=== PATIENT | female | born 1950 | race Caucasian/White ===

== ENCOUNTER 2018-12-31 10:34 | Inpatient (IN) ==
--- NOTE | 2018-12-31 10:43 | Emergency Department Note ---
Disposition Clinical Impression: Acute exacerbation of chronic obstructive airways disease Pneumonia Qualifiers: Qualified Code(s): J18.9 - Disposition: Admitted As Inpatient Condition: Fair Time of Disposition: 09:53 SOB HPI - General Stated Complaint: Abdominal pain Time Seen by Provider: 12/31/18 10:40 Source: patient Mode of arrival: ambulatory Limitations: no limitations Nursing Notes Reviewed: Yes Vital Signs Reviewed: Yes - History of Present Illness 68-year-old female past medical history of COPD presenting for one week of generalized malaise. Patient self diagnosed with bronchitis had order for a azithromycin Z-Melecio called in for her in the past 5 days, patient states that this is not helping with her symptoms she has progressively gotten worse. Patient admits to headache, lightheadedness, dizziness, shortness of breath, abdominal pain nausea vomiting and dark colored diarrhea. Pt Subjective Complaint: shortness of breath Onset (ago): week(s) Context: recent illness Severity: moderate - Related Data Home Medications Medication Instructions Recorded Confirmed Albuterol Sulfate [Proair Hfa] 2 puff IH Q4H PRN 02/27/18 12/31/18 Cholecalciferol (D-3) [Vitamin D] 1,000 unit PO DAILY 02/27/18 12/31/18 Cyanocobalamin (Vitamin B-12) 1,000 mcg PO DAILY 02/27/18 12/31/18 [Vitamin B-12] Gabapentin [Neurontin] 800 mg PO TID 02/27/18 12/31/18 Melatonin [Melatin] 3 mg PO HS 02/27/18 09/17/18 Simvastatin [Zocor] 40 mg PO HS 02/27/18 12/31/18 ALPRAZolam [Xanax 0.25 MG Tablet] 0.25 mg PO TID PRN 09/17/18 12/31/18 Buspirone HCl [Buspar] 30 mg PO BID 09/17/18 12/31/18 Fluticasone Propionate Nasal 2 spr NS DAILY 09/17/18 12/31/18 [Flonase] Fluticasone/Umeclidin/Vilanter 1 puff IH DAILY 09/17/18 12/31/18 [Trelegy Ellipta 100-62.5-25] Hyoscyamine SL [Levsin Sl] 0.125 mg SL Q6H 09/17/18 12/31/18 Losartan/Hydrochlorothiazide 1 tab PO DAILY 09/17/18 12/31/18 [Losartan-Hctz 100-25 mg Tab] Rizatriptan Benzoate [Maxalt Tissue Technologist] 10 mg PO DAILY PRN 09/17/18 12/31/18 Roflumilast [Daliresp] 500 mcg PO DAILY 09/17/18 09/17/18 Ropinirole HCl [Requip] 0.5 mg PO HS 09/17/18 12/31/18 Sertraline [Zoloft] 100 mg PO DAILY 09/17/18 12/31/18 Tramadol HCl [Ultram] 50 mg PO TID PRN 09/17/18 12/31/18 Trazodone HCl 100 mg PO HS 09/17/18 09/17/18 Previous Rx's Medication Instructions Recorded Cholestyramine 4 gm PO QIDAC #120 powd.pack 09/21/18 Pantoprazole Sodium [Protonix] 40 mg PO QAM #30 tablet. 09/21/18 Amoxicillin/Clavulanate [Augmentin] 875 mg PO BIDWM #14 tablet 10/19/18 Allergies Allergy/AdvReac Type Severity Reaction Status Date / Time cefdinir Allergy Diarrhea Verified 09/19/18 08:36 cefuroxime [From Ceftin] Allergy Diarrhea Verified 09/19/18 08:36 levofloxacin [From Levaquin] Allergy Hives Verified 12/02/17 21:17 codeine AdvReac Nausea Verified 07/17/16 09:14 latex AdvReac Hives Verified 07/17/16 09:14 Review of Systems: *See History of Present Illness for more detail Constitutional: Admits to hot/cold alteration. Denies: fever, chills Cardiovascular: Denies: chest pain Respiratory: Admits dyspnea Denies: cough, hemoptysis Gastrointestinal: Admits abdominal pain/nausea/vomiting, diarrhea and dark colored diarrhea concerning for possible melena Denies: constipation, hematemesis, hematochezia Genitourinary: Denies: hematuria Musculoskeletal: Denies: back pain, neck pain Neurological: Admits to headache, weakness, lightheadedness, dizziness Denies: numbness, paresthesias, difficulty with ambulation. Endocrine: Admits fatigue All systems ED: reviewed and negative except as stated. Review of Systems: As Per HPI Past Medical History - Past Medical History Medical history: Reports: asthma, COPD, GERD, hypertension, migraine, other Surgical history: Reports: cholecystectomy, hysterectomy, sinus surgery Psychiatric history: Reports: anxiety, depression - Social History Smoking Status: Current every day smoker Smokeless Tobacco Status: No Alcohol use: Reports: none Drug use: Reports: none Physical Exam Constitutional: Mild distress, otherwise [id number], engaged to conversation, speech is fluid, answers questions appropriately Neuro: GCS 15, no overt focal neurological deficits Head: Atraumatic, normocephalic Eyes: Pupils equal, round and reactive to light, no scleral icterus, no conjunctival injection Neck: Trachea midline without deviation. Anterior neck is supple without swelling. *Chest: Symmetric chest wall rise *Heart: Cardiac rhythm and rate are regular with S1 and S2 , no S3 or S4 appreciated, no murmurs, gallops, rubs, or clicks. *Lungs: Low tidal volumes of respiration, crackles noted in the left lower lobe, wheezes bilateral upper lobes without accessory muscle use or prolonged expiratory phase. No rhonchi or stridor appreciated. Abdomen: Abdomen diffusely but mildly tender to palpation. Abdomen is otherwise flat, soft to palpation, normal bowel sounds. No abdominal bruit auscultated. Non-distended, non-rigid, no organomegaly, no ascites appreciated. No pulsatile mass, no guarding to palpation in all four quadrants, no rebound Extremities: Normal capillary refill without evidence of pedal edema, joint swelling or erythema. Pulses/motor intact in all 4 extremities. Psychiatric exam: Patient displays a normal affect and mood for the environment. No overt signs of hallucination. Integumentary: warm, dry, intact, normal color. No rash, cyanosis, diaphoresis, erythema, or pallor - General Limitations: no limitations General appearance: alert, in distress (Patient appears in mild distress) Course Course Narrative: Differential diagnosis includes but is not limited to: COPD exacerbation Bronchitis Pneumonia Myocardial ischemia Evaluations: CBC, BMP, troponin, EKG/old EKG, chest x-ray Treatments: Zofran, DuoNeb nebs, steroids for management of patient's symptoms. Vital Signs Temperature 98.5 F 12/31/18 10:42 Pulse Rate 68 12/31/18 10:42 Respiratory Rate 26 12/31/18 10:42 Blood Pressure 150/67 06/13/19 10:42 O2 Sat by Pulse Oximetry 95 12/31/18 10:42 Temperature 98.0 F 01/01/19 06:55 Pulse Rate 72 01/01/19 06:55 Respiratory Rate 16 01/01/19 06:55 Blood Pressure 119/65 01/01/19 06:55 O2 Sat by Pulse Oximetry 97 01/01/19 06:55 Oxygen Delivery Oxygen Delivery Room Air Shortness of Breath/Dyspnea - MDM Narrative Medical decision making narrative: Imaging concerning for left lower lobe infiltrate or atelectasis Patient improved with corticosteroid and DuoNeb's in ED Patient will be admitted for COPD exacerbation as well as potential GI bleed given her dark stool Hemoglobin is stable at this time - unable to perform Hemoccult prior to patient admission In-person conversation had with hospitalist regarding concern for GI bleed. Patient verbalizes understanding and agreement with this plan. Dr. Velasco accepting admission. - Lab Data Lab results reviewed: Yes I reviewed the patient's lab results. Result diagrams: 01/01/19 04:13 01/01/19 04:13 Lab Results 12/31/18 12/31/18 12/31/18 Range/Units 10:52 10:52 10:52 WBC 6.1 (4.3-11.1) K/mcL RBC 4.03 (3.82-4.97) M/mcL Hgb 11.6 (11.5-15.4) g/dL Hct 35.1 L (35.3-44.9) % MCV 87.1 (83.0-100.0) fL MCH 28.8 (28.0-33.3) pg MCHC 33.0 (31.6-35.5) g/dL RDW 12.6 (11.5-14.5) % Plt Count 393 (140-400) K/mcL MPV 8.9 L (9.4-12.4) fL Immature Gran % 0.7 (0-4) % Seg Neutrophils % 77.6 % Lymphocytes % 11.9 % Monocytes % 8.3 % Eosinophils % 0.3 % Basophils % 1.2 % Neutrophils # 4.7 (1.6-8.9) K/mcL Lymphocytes # 0.7 (0.6-4.6) K/mcL Monocytes # 0.5 (0.0-1.3) K/mcL Eosinophils # 0.0 (0.0-0.6) K/mcL Basophils # 0.1 (0.0-0.2) K/mcL APTT 33.6 (26.0-36.0) Seconds Sodium 133 L (136-145) mEq/L Potassium 2.6 L (3.5-5.1) mEq/L Chloride 95 L (98-107) mEq/L Carbon Dioxide 27 (23-29) mEq/L BUN 9 (8-23) mg/dL Creatinine 0.48 L (0.60-1.20) mg/dL Est GFR ( Amer) > 60 (> 60) Est GFR (Non-Af Amer) > 60 (> 60) BUN/Creatinine Ratio 19 (6-26) Glucose 74 (70-105) mg/dL Calculated Osmolality 273 L (280-300) Lactic Acid (0.5-2.2) mmol/L Calcium 8.7 (8.6-10.3) mg/dL Magnesium 1.5 L (1.6-2.6) mg/dL Troponin I < 0.03 (< 0.04) ng/mL 12/31/18 Range/Units 12:47 WBC (4.3-11.1) K/mcL RBC (3.82-4.97) M/mcL Hgb (11.5-15.4) g/dL Hct (35.3-44.9) % MCV (83.0-100.0) fL MCH (28.0-33.3) pg MCHC (31.6-35.5) g/dL RDW (11.5-14.5) % Plt Count (140-400) K/mcL MPV (9.4-12.4) fL Immature Gran % (0-4) % Seg Neutrophils % % Lymphocytes % % Monocytes % % Eosinophils % % Basophils % % Neutrophils # (1.6-8.9) K/mcL Lymphocytes # (0.6-4.6) K/mcL Monocytes # (0.0-1.3) K/mcL Eosinophils # (0.0-0.6) K/mcL Basophils # (0.0-0.2) K/mcL APTT (26.0-36.0) Seconds Sodium (136-145) mEq/L Potassium (3.5-5.1) mEq/L Chloride (98-107) mEq/L Carbon Dioxide (23-29) mEq/L BUN (8-23) mg/dL Creatinine (0.60-1.20) mg/dL Est GFR ( Amer) (> 60) Est GFR (Non-Af Amer) (> 60) BUN/Creatinine Ratio (6-26) Glucose (70-105) mg/dL Calculated Osmolality (280-300) Lactic Acid 1.8 (0.5-2.2) mmol/L Calcium (8.6-10.3) mg/dL Magnesium (1.6-2.6) mg/dL Troponin I (< 0.04) ng/mL - Radiology Data Radiology results reviewed: Yes I reviewed the patient's radiology results. Chest X-Ray 12/31/18 10:45 IMPRESSION: Mild left basilar atelectasis or infiltrate. D/ / Laina Brown MD / Laina Brown MD Interpreting Provider: Laina Brown MD - EKG Data EKG attestation: Yes I reviewed and interpreted this EKG. EKG results narrative: Patient EKG shows sinus rhythm with a heart of 67 bpm, SC interval of 152 ms, QRS duration of 85 ms, QT/QTc interval 452/478 ms respectively. There are no significant ST segment elevations, depressions, pathologic Q waves, abnormal T- wave inversion, nor any other signs of acute ischemic change. This EKG performed today is generally consistent with prior EKG performed on 09/16/2018. Attestation Statement - Attestation Attestation: I, Chay Jimenez DO, examined this patient [id number] and my medical decision-making was reviewed with Dr. Alok Holguin, Resident Physician. I agree with the documented findings, disposition and treatment plan as described except to the extent set forth below. I personally supervised and was present for the rose/critical portions of the procedures completed by the resident documented below. Please see my progress notes for details.
[2018-12-31] MEDS ORDERED: methylPREDNISolone 125 MG/2 ML VIAL IVP ONE (10:44)
[2018-12-31] MEDS ORDERED: Ipratropium/Albuterol Neb 3 ML IH ONE (10:44)
[2018-12-31] MEDS ORDERED: Ondansetron 4 MG/2 ML VIAL IVP STA (10:46)
[2018-12-31 11:02] LABS: Basophils # 0.1 K/mcL (0.0-0.2); Basophils % 1.2 %; Eosinophils % 0.3 %; Hematocrit 35.1 % (35.3-44.9); Hemoglobin 11.6 g/dL (11.5-15.4); Immature Granulocytes % 0.7 % (0-4); Lymphocytes # 0.7 K/mcL (0.6-4.6); Lymphocytes % 11.9 %; Mean Corpuscular Hemoglobin 28.8 pg (28.0-33.3); Mean Corpuscular Volume 87.1 fL (83.0-100.0); Mean Platelet Volume 8.9 fL (9.4-12.4); Monocytes # 0.5 K/mcL (0.0-1.3); Monocytes % 8.3 %; Neutrophils # 4.7 K/mcL (1.6-8.9); Platelet Count 393 K/mcL (140-400); Red Blood Count 4.03 M/mcL (3.82-4.97); Red Cell Distribution Width 12.6 % (11.5-14.5); Segmented Neutrophils % 77.6 %; White Blood Count 6.1 K/mcL (4.3-11.1)
[2018-12-31 11:24] LABS: BUN/Creatinine Ratio 19 (6-26); Blood Urea Nitrogen 9 mg/dL (8-23); Calcium 8.7 mg/dL (8.6-10.3); Carbon Dioxide 27 mEq/L (23-29); Chloride 95 mEq/L (98-107); Glucose 74 mg/dL (70-105); Osmolality,Calculated 273 (280-300); Potassium 2.6 mEq/L (3.5-5.1); Sodium 133 mEq/L (136-145); Troponin I < 0.03 ng/mL (< 0.04); eGFR For African Americans > 60 (> 60); eGFR For Non-African Americans > 60 (> 60)
[2018-12-31] MEDS ORDERED: Potassium Chloride Elixir 20 MEQ/15 ML UDC PO ONE (11:32)
--- NOTE | 2018-12-31 12:35 | Emergency Department Note ---
Disposition Clinical Impression: Acute exacerbation of chronic obstructive airways disease, Pneumonia Disposition: Admitted As Inpatient Condition: Fair Forms: ED Satisfaction Letter Time of Disposition: 13:04 General Adult HPI - General Chief complaint: ED Shortness of Breath/Dyspnea Stated complaint: Abdominal pain Time Seen by Provider: 12/31/18 10:40 Source: patient Limitations: no limitations - History of Present Illness Pain Scale: 8 - Related Data Home Medications Medication Instructions Recorded Confirmed Albuterol Sulfate [Proair Hfa] 2 puff IH Q4H PRN 02/27/18 09/17/18 Cholecalciferol (D-3) [Vitamin D] 1,000 unit PO DAILY 02/27/18 09/17/18 Cyanocobalamin (Vitamin B-12) 1,000 mcg PO DAILY 02/27/18 09/17/18 [Vitamin B-12] Gabapentin [Neurontin] 800 mg PO TID 02/27/18 09/17/18 Melatonin [Melatin] 3 mg PO HS 02/27/18 09/17/18 Simvastatin [Zocor] 40 mg PO HS 02/27/18 09/17/18 ALPRAZolam [Xanax 0.25 MG Tablet] 0.25 mg PO TID PRN 09/17/18 09/17/18 Buspirone HCl [Buspar] 30 mg PO BID 09/17/18 09/17/18 Fluticasone Propionate Nasal 2 spr NS DAILY 09/17/18 09/17/18 [Flonase] Fluticasone/Umeclidin/Vilanter 1 puff IH DAILY 09/17/18 09/17/18 [Trelegy Ellipta 100-62.5-25] Hyoscyamine SL [Levsin Sl] 0.125 mg SL Q6H 09/17/18 09/17/18 Losartan/Hydrochlorothiazide 1 tab PO DAILY 09/17/18 09/17/18 [Losartan-Hctz 100-25 mg Tab] Rizatriptan Benzoate [Maxalt Press Feeder [employer]roomcorn] 10 mg PO DAILY PRN 09/17/18 09/17/18 Roflumilast [Daliresp] 500 mcg PO DAILY 09/17/18 09/17/18 Ropinirole HCl [Requip] 0.5 mg PO HS 09/17/18 09/17/18 Sertraline [Zoloft] 100 mg PO DAILY 09/17/18 09/17/18 Tramadol HCl [Ultram] 50 mg PO TID PRN 09/17/18 09/17/18 Trazodone HCl 100 mg PO HS 09/17/18 09/17/18 Previous Rx's Medication Instructions Recorded Cholestyramine 4 gm PO QIDAC #120 powd.pack 09/21/18 Pantoprazole Sodium [Protonix] 40 mg PO QAM #30 tablet. 09/21/18 Amoxicillin/Clavulanate [Augmentin] 875 mg PO BIDWM #14 tablet 10/19/18 Allergies Allergy/AdvReac Type Severity Reaction Status Date / Time cefdinir Allergy Diarrhea Verified 09/19/18 08:36 cefuroxime [From Ceftin] Allergy Diarrhea Verified 09/19/18 08:36 levofloxacin [From Levaquin] Allergy Hives Verified 12/02/17 21:17 codeine AdvReac Nausea Verified 07/17/16 09:14 latex AdvReac Hives Verified 07/17/16 09:14 Past Medical History - Past Medical History Medical history: Reports: asthma, COPD, GERD, hypertension, migraine, other Surgical history: Reports: cholecystectomy, hysterectomy, sinus surgery Psychiatric history: Reports: anxiety, depression - Social History Smoking Status: Current every day smoker Smokeless Tobacco Status: No Alcohol use: Reports: none Drug use: Reports: none Physical Exam - General Limitations: no limitations General appearance: alert, in distress (Patient appears in mild distress) Course Vital Signs Temperature 98.5 F 12/31/18 10:42 Pulse Rate 68 12/31/18 10:42 Respiratory Rate 26 12/31/18 10:42 Blood Pressure 150/67 12/31/18 10:42 O2 Sat by Pulse Oximetry 95 12/31/18 10:42 Temperature 98.5 F 12/31/18 10:42 Pulse Rate 81 12/31/18 12:33 Respiratory Rate 22 12/31/18 12:33 Blood Pressure 133/67 12/31/18 12:33 O2 Sat by Pulse Oximetry 93 12/31/18 12:33 Oxygen Delivery Oxygen Delivery Room Air Medical Decision Making - Lab Data Result diagrams: 12/31/18 10:52 12/31/18 10:52 Lab Results 12/31/18 12/31/18 Range/Units 10:52 10:52 WBC 6.1 (4.3-11.1) K/mcL RBC 4.03 (3.82-4.97) M/mcL Hgb 11.6 (11.5-15.4) g/dL Hct 35.1 L (35.3-44.9) % MCV 87.1 (83.0-100.0) fL MCH 28.8 (28.0-33.3) pg MCHC 33.0 (31.6-35.5) g/dL RDW 12.6 (11.5-14.5) % Plt Count 393 (140-400) K/mcL MPV 8.9 L (9.4-12.4) fL Immature Gran % 0.7 (0-4) % Seg Neutrophils % 77.6 % Lymphocytes % 11.9 % Monocytes % 8.3 % Eosinophils % 0.3 % Basophils % 1.2 % Neutrophils # 4.7 (1.6-8.9) K/mcL Lymphocytes # 0.7 (0.6-4.6) K/mcL Monocytes # 0.5 (0.0-1.3) K/mcL Eosinophils # 0.0 (0.0-0.6) K/mcL Basophils # 0.1 (0.0-0.2) K/mcL Sodium 133 L (136-145) mEq/L Potassium 2.6 L (3.5-5.1) mEq/L Chloride 95 L (98-107) mEq/L Carbon Dioxide 27 (23-29) mEq/L BUN 9 (8-23) mg/dL Creatinine 0.48 L (0.60-1.20) mg/dL Est GFR ( Amer) > 60 (> 60) Est GFR (Non-Af Amer) > 60 (> 60) BUN/Creatinine Ratio 19 (6-26) Glucose 74 (70-105) mg/dL Calculated Osmolality 273 L (280-300) Calcium 8.7 (8.6-10.3) mg/dL Troponin I < 0.03 (< 0.04) ng/mL Attestation Statement - Attestation Attestation: I, Chay Jimenez DO, examined this patient [id number] and my medical decision-making was reviewed with Dr. Alok Holguin, Resident Physician. I agree with the documented findings, disposition and treatment plan as described except to the extent set forth below. I personally supervised and was present for the rose/critical portions of the procedures completed by the resident documented below. Please see my progress notes for details. 68-year-old female presents emergency room from home by EMS for evaluation of generalized malaise shortness of breath and not feeling better after being started on a Z-Melecio by her forensic computer examiner. Patient is currently denying chest pain fevers or chills. She has not had any nausea vomiting or diarrhea. Denies any headache or vision change. Patient is otherwise stable. Denies any travel outside the country or changes in her medication this time. Vital signs reviewed and are stable. Patient was transported by EMS in no specific distress. She did have oxygen concentrator home as well as a CPAP machine. Patient is conversational on arrival but she does have broken speech secondary to what looks like shortness of breath. Lungs are diminished with intermittent wheezing. Heart is regular. Abdomen is soft no pulsatile masses or lesions. Patient denies any specific history of blood clots or pulmonary emboli. Extremities otherwise normal with no asymmetry redness warmth or abnormality noted. Patient speaking in full sentences and was able to move all 4 extremities with purpose and showing no acute signs of ataxia. The described presentation here today is most concerning for pulmonary related issues including COPD exacerbation with possible underlying pneumonia. Dyspnea workup will be established with lactic acid CBC blood cultures chest x-ray EKG chemistry panel and troponin. Disposition pending full workup and treatment course. EKG was reviewed by myself in documented by the resident physician. Breathing treatments and steroids have been ordered. See detailed documentation of the physical exam, medical intervention, medical decision-making and disposition in the resident physician's note. No critical care provider the patient's treatment course at this time. 1215 Chest x-ray is concerning for atelectasis versus pneumonia. Patient will be started on doxycycline with accordance to her allergy list. Blood cultures and lactic acid have been ordered. Patient is otherwise clinically stable. Respirations are responding appropriately to the breathing treatment the patient's vital signs remained unremarkable. Disposition will most likely be admission for COPD exacerbation and failed outpatient management. 1245 Patient presentation was discussed and reviewed with the hospitalist Dr. russo. No other recommendations or concerns. Patient is chronically stable. Antibiotic regimen has been started. They will follow up with [facility] labs. She will be monitored here in emergency department until admission process is completed.
[2018-12-31] MEDS ORDERED: 0.9 % Sodium Chloride 500 ML IVC ONE (12:36)
[2018-12-31] MEDS ORDERED: *HR* FentaNYL (PF) 100 MCG/2 ML VIAL IVP ONE (12:36)
[2018-12-31] MEDS ORDERED: Doxycycline 100 MG in 0.9 % Sodium Chloride Mini Bag 100 ML IVPB ONE (12:37)
[2018-12-31] MEDS ORDERED: Naloxone 0.4 MG/ML INJ IVP PRN (12:52)
--- NOTE | 2018-12-31 12:52 | Internal Med History&Physical ---
Date of Encounter: 01/01/19 Time of Encounter: 12:52 Internal Medicine - H&P: HPI Chief complaint: SOB, dark stool History of present illness: Ms. Paiz is a 68 year old female with past medical history of COPD, atrial fibrillation, cardiomyopathy, CHF, coronary artery disease, diabetes, hyperlipidemia, hypertension, renal disease , duodenal ulcer presenting for one week of history of generalized malaise associated with SOB and cough. The patient was self diagnosed with bronchitis had he PCP prescribing azithromycin Z-Melecio that she took for the last 5 days with no improvement. She is also c/o lightheadedness, dizziness, abdominal pain associated with nausea and noon bloody vomiting. She had several episodes of black loose stool. She was evaluated by ER and her CXR was suggestive of COPD exacerbation, she was admitted for further evaluation and management. Past Med Surg Social Fam HX - Past Medical History Medical history: asthma, COPD, GERD, hypertension, migraine, other Additional medical history: IBS Psychiatric history: anxiety, depression - Past Surgical History Surgical History: cholecystectomy, hysterectomy, sinus surgery - Social History Smoking Status: Current every day smoker Smokeless Tobacco Status: No Alcohol use: none Drug use: none - Family History Mother Living Status: Hx Family Cardiac Disorders: Yes Hx Family Respiratory Disorders: No Hx Family Cancer: No Hx Family GI Disorders: No Hx Family Endocrine Disorder: No Hx Family Neuromuscular Disorders: No Hx Family Neurologic Disorders: No Hx Family HEENT Disorders: No Hx Family Autoimmune Disorders: No Father Living Status: Hx Family Cardiac Disorders: Yes Hx Family Respiratory Disorders: No Hx Family Cancer: No Hx Family GI Disorders: No Hx Family Endocrine Disorder: No Hx Family Neuromuscular Disorders: No Hx Family Neurologic Disorders: No Hx Family HEENT Disorders: No Hx Family Autoimmune Disorders: No Internal Medicine - H&P: Meds Albuterol Sulfate [Proair Hfa] 2 puff IH Q4H PRN 02/27/18 [History] Cholecalciferol (D-3) [Vitamin D] 1,000 unit PO DAILY 02/27/18 [History] Cyanocobalamin (Vitamin B-12) [Vitamin B-12] 1,000 mcg PO DAILY 02/27/18 [History] Gabapentin [Neurontin] 800 mg PO TID 02/27/18 [History] Melatonin [Melatin] 3 mg PO HS 02/27/18 [History] Simvastatin [Zocor] 40 mg PO HS 02/27/18 [History] ALPRAZolam [Xanax 0.25 MG Tablet] 0.25 mg PO TID PRN 09/17/18 [History] Buspirone HCl [Buspar] 30 mg PO BID 09/17/18 [History] Fluticasone Propionate Nasal [Flonase] 2 spr NS DAILY 09/17/18 [History] Fluticasone/Umeclidin/Vilanter [Trelegy Ellipta 100-62.5-25] 1 puff IH DAILY [History] Hyoscyamine SL [Levsin Sl] 0.125 mg SL Q6H 09/17/18 [History] Losartan/Hydrochlorothiazide [Losartan-Hctz 100-25 mg Tab] 1 tab PO DAILY 09/17/18 [History] Rizatriptan Benzoate [Maxalt Hereditary Cancer Program Coordinator] 10 mg PO DAILY PRN 09/17/18 [History] Roflumilast [Daliresp] 500 mcg PO DAILY 09/17/18 [History] Ropinirole HCl [Requip] 0.5 mg PO HS 09/17/18 [History] Sertraline [Zoloft] 100 mg PO DAILY 09/17/18 [History] Tramadol HCl [Ultram] 50 mg PO TID PRN 09/17/18 [History] Trazodone HCl 100 mg PO HS 09/17/18 [History] Cholestyramine 4 gm PO QIDAC #120 powd.pack 09/21/18 [Rx] Pantoprazole Sodium [Protonix] 40 mg PO QAM #30 tablet. 09/21/18 [Rx] Amoxicillin/Clavulanate [Augmentin] 875 mg PO BIDWM #14 tablet 10/19/18 [Rx] Allergy/AdvReac Type Severity Reaction Status Date / Time cefdinir Allergy Diarrhea Verified 09/19/18 08:36 cefuroxime [From Ceftin] Allergy Diarrhea Verified 09/19/18 08:36 levofloxacin [From Levaquin] Allergy Hives Verified 12/02/17 21:17 codeine AdvReac Nausea Verified 07/17/16 09:14 latex AdvReac Hives Verified 07/17/16 09:14 All Systems PM: A 10-system review of systems was performed and is negative for pertinent findings except as documented above in the HPI. - Constitutional Vitals: Temp Pulse Resp BP Pulse Ox 98.5 F 81 22 133/67 93 12/31/18 10:42 12/31/18 12:33 12/31/18 12:33 12/31/18 12:33 12/31/18 12:33 General appearance: Present: A&O X 3 Exam: ` - Head Head exam: Present: atraumatic, normocephalic - Neck Neck exam general surgery: Present: supple, trachea midline. Absent: lympha denopathy - Respiratory Respiratory exam: Present: rhonchi, wheezes. Absent: accessory muscle use, rales - Cardiovascular Cardiovascular exam: Present: RRR, +S1, +S2. Absent: diastolic murmur, gallop, rubs, systolic murmur - GI/Abdominal GI/Abdominal exam: Present: normal bowel sounds, soft, no peritoneal signs. Absent: distended, tenderness - Extremities Exam Extremities exam: Present: warm, radial pulses palpable and symmetrical. Abse nt: calf tenderness, cyanotic, pedal edema Additional comments: ecchymosis of both UE Internal Med - H&P Results - Labs CBC & Chem 7: 12/31/18 10:52 12/31/18 10:52 Labs: Short CBC 12/31/18 Range/Units 10:52 WBC 6.1 (4.3-11.1) K/mcL Hgb 11.6 (11.5-15.4) g/dL Hct 35.1 L (35.3-44.9) % Plt Count 393 (140-400) K/mcL Neutrophils # 4.7 (1.6-8.9) K/mcL BMP 12/31/18 10:52 Sodium 133 L Potassium 2.6 L Chloride 95 L Carbon Dioxide 27 BUN 9 Creatinine 0.48 L Glucose 74 Calcium 8.7 Cardiac Enzymes 12/31/18 Range/Units 10:52 Troponin I < 0.03 (< 0.04) ng/mL - Impressions ITS Impressions Chest X-Ray 12/31/18 10:45 IMPRESSION: Mild left basilar atelectasis or infiltrate. D/ / Laina Brown MD / Laina Brown MD Interpreting Provider: Laina Brown MD - Assessment and Plan (1) Acute exacerbation of chronic obstructive airways disease Current Visit: Yes Status: Acute Assessment and plan: SOB COPD exacerbation caused by URTI, allergen exposure, medication nonocomp liance CXR: Mild left basilar atelectasis or infiltrate. PLAN: - Aerosols q 4 hr and PRN SOB - Solu-medrol 40 mg IV q 6 hr - O2 to keep SpO2 higher than 92% (SpO higher than 95% if CAD) - CBCD, BMP in AM - Sputum Gram stain, C+S - Tylenol 650 mg PO q 4-6 hr PRN pain/fever - Heparin 5000 U SQ BID - Home meds - check the list and restart - ABs (2) Pneumonia Current Visit: Yes Status: Acute Assessment and plan: SOB due to Pneumonia Failed OP ABx Tx- Structural lung disease- - Blood Cx - Urine Legionella antigen - Antibiotics - CBCD, CMP in AM Qualifiers: Qualified Code(s): J18.9 - Pneumonia, unspecified organism (3) Duodenal ulcer disease Current Visit: No Status: Acute Assessment and plan: The patient underwent upper and lower endoscopy in 09/08. Duodenal ulcers (nonbleeding) and to 6-10 mm nonbleeding polyps in the sigmoid colon was noted, She had diverticulosis in the sigmoid colon as well as nonbleeding internal hemorrhoids. We will start PPIs and consult GI. (4) Diastolic heart failure with preserved ejection fraction Current Visit: No Status: Chronic Assessment and plan: We will cont home meds (5) Hypokalemia Current Visit: No Status: Acute Assessment and plan: We will replace and monitor K. (6) Anemia Current Visit: Yes Status: Acute Assessment and plan: Most likely 2/2 chronic blood loss in the sitting of H/O Duodenal ulcer. HGB is stable, no evidence of active bleeding. We will cont to monitor H&H Qualifiers: Qualified Code(s): D64.9 - Anemia, unspecified - Time Spent With Patient Total time spent is greater than 50% in coordination of care (as documented) at patient's floor/unit and/or counseling patient:
[2018-12-31 12:58] LABS: Magnesium 1.5 mg/dL (1.6-2.6)
[2018-12-31] MEDS: Ipratropium/Albuterol Neb 3 ML IH SCH ×2 (16:25→22:39)
[2018-12-31] MEDS: 0.9 % Sodium Chloride 1,000 ML IVC SCH ×2 (17:37→23:44)
[2018-12-31] MEDS: Doxycycline 100 MG in 0.9 % Sodium Chloride Mini Bag 100 ML IVPB SCH (17:38)
[2018-12-31] MEDS: Pantoprazole 40 MG VIAL IVP SCH (17:42)
[2018-12-31] MEDS: MethylPREDNISolone 40 MG/ML VIAL IVP SCH ×2 (18:22→23:43)
[2018-12-31] MEDS: rOPINIRole 0.25 MG TABLET PO SCH (23:43)
[2018-12-31] MEDS: Gabapentin 400 MG CAPSULE PO SCH (23:44)
[2018-12-31] MEDS: traMADol 50 MG TABLET PO PRN (23:44)
[2018-12-31] MEDS: ALPRAZolam 0.25 MG TABLET PO PRN (23:44)
[2019-01-01] MEDS: Ipratropium/Albuterol Neb 3 ML IH SCH ×4 (04:27→22:35)
[2019-01-01] MEDS: Acetaminophen 325 MG TABLET PO PRN ×2 (04:40→21:51)
[2019-01-01] MEDS: Doxycycline 100 MG in 0.9 % Sodium Chloride Mini Bag 100 ML IVPB SCH (04:41)
[2019-01-01] MEDS: Pantoprazole 40 MG VIAL IVP SCH ×2 (04:41→17:17)
[2019-01-01] MEDS: MethylPREDNISolone 40 MG/ML VIAL IVP SCH ×3 (04:41→17:17)
[2019-01-01 05:46] LABS: White Blood Count 4.5 K/mcL (4.3-11.1)
[2019-01-01 05:47] LABS: Hematocrit 28.9 % (35.3-44.9); Hemoglobin 9.5 g/dL (11.5-15.4); Immature Granulocytes % 0.9 % (0-4); Lymphocytes # 0.4 K/mcL (0.6-4.6); Lymphocytes % 8.1 %; Mean Corpuscular HGB Conc 32.9 g/dL (31.6-35.5); Mean Corpuscular Hemoglobin 29.1 pg (28.0-33.3); Mean Corpuscular Volume 88.4 fL (83.0-100.0); Mean Platelet Volume 9.6 fL (9.4-12.4); Monocytes # 0.1 K/mcL (0.0-1.3); Monocytes % 2.5 %; Platelet Count 353 K/mcL (140-400); Red Blood Count 3.27 M/mcL (3.82-4.97); Red Cell Distribution Width 12.7 % (11.5-14.5); Segmented Neutrophils % 88.5 %
[2019-01-01 05:55] LABS: Prothrombin Time 11.7 Seconds (9.4-12.1)
[2019-01-01 06:07] LABS: Alanine Aminotransferase 9 Units/L (7-52); Albumin 2.9 g/dL (3.5-5.7); Albumin/Globulin Ratio 1.2 (1.1-2.2); Alkaline Phosphatase 55 Units/L (34-104); Aspartate Amino Transferase 11 Units/L (13-39); BUN/Creatinine Ratio 24 (6-26); Bilirubin,Total 0.3 mg/dL (0.3-1.0); Blood Urea Nitrogen 12 mg/dL (8-23); Calcium 8.1 mg/dL (8.6-10.3); Carbon Dioxide 24 mEq/L (23-29); Chloride 104 mEq/L (98-107); Chol/HDL Ratio 2.6 (0-4.9); Cholesterol 123 mg/dL (< 200); Globulin 2.5 g/dL (2.4-3.5); Glucose 126 mg/dL (70-105); HDL Cholesterol 47 mg/dL (40-59); LDL Cholesterol,Calculated 67 mg/dL (0-99); Magnesium 1.3 mg/dL (1.6-2.6); Osmolality,Calculated 277 (280-300); Phosphorous 2.4 mg/dL (2.7-4.5); Potassium 3.1 mEq/L (3.5-5.1); Sodium 133 mEq/L (136-145); Total Protein 5.4 g/dL (6.4-8.9); Triglycerides 44 mg/dL (< 150); eGFR For African Americans > 60 (> 60); eGFR For Non-African Americans > 60 (> 60)
--- NOTE | 2019-01-01 07:13 | Electrocardiograph Report ---
[place] [employer] Test Date: 2018-12-31 Pat Name: Lenore Paiz Department: EXAM2 Room: 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
[2019-01-01] MEDS ORDERED: cefTRIAXone 2,000 MG in 0.9 % Sodium Chloride Mini Bag 100 ML IVPB SCH (09:00)
[2019-01-01] MEDS ORDERED: Azithromycin 500 MG in D5% in Water 250 ML IVPB SCH (09:00)
[2019-01-01] MEDS: BUSPIRONE HCL 10 MG TABLET PO SCH ×2 (10:09→21:51)
[2019-01-01] MEDS: Cyanocobalamin (B-12) 1,000 MCG TABLET PO SCH (10:09)
[2019-01-01] MEDS: Cholecalciferol (D-3) 1,000 UNIT TABLET PO SCH (10:10)
[2019-01-01] MEDS: Losartan/HCTZ 50-12.5 TABLET PO SCH (10:10)
[2019-01-01] MEDS: Gabapentin 400 MG CAPSULE PO SCH ×3 (10:10→21:51)
[2019-01-01] MEDS: (Fluticasone/Umeclidin/Vilanter [Trelegy Ellipta 100-) IH SCH (10:10)
--- NOTE | 2019-01-01 10:15 | Internal Med Progress Note ---
Hospitalist Progress Note - Encounter Date of Encounter: 01/01/19 Time of Encounter: 10:13 - Subjective Interval History: Pt seen and examined in the room. Reported long time hx of IBS and had poor oral intake in the past several weeks. Reported alternating loose stool and normal BM. Also reported black stool. Mild abd tenderness without N/V. - Exam Vitals: Temp Pulse Resp BP Pulse Ox 98.0 F 72 16 119/65 97 01/01/19 06:55 01/01/19 06:55 01/01/19 06:55 01/01/19 06:55 01/01/19 06:55 Exam: PHYSICAL EXAMINATION: GENERAL APPEARANCE: The patient is alert, oriented and in no acute distress. HEENT: Head is normocephalic. The sinuses are nontender. Pupils are equal and reactive. The nares are patent. Oropharynx clear without lesions. NECK: Supple without lymphadenopathy. HEART: Regular rate and rhythm. LUNGS: No crackles or wheezes are heard. ABDOMEN: Soft, nontender, nondistended with good bowel sounds heard. Inguinal area is normal. EXTREMITIES: Without cyanosis, clubbing or edema. NEUROLOGICAL: Gross nonfocal. SKIN: Warm and dry without any rash. - Assessment and Plan (1) Pneumonia Current Visit: Yes Status: Acute Assessment and Plan: SOB due to Pneumonia Failed OP ABx Tx- Structural lung disease- - Blood Cx - Urine Legionella antigen - Antibiotics (2) Duodenal ulcer disease Current Visit: No Status: Acute Assessment and Plan: The patient underwent upper and lower endoscopy in 12/06. Duodenal ulcers (nonbleeding) and to 6-10 mm nonbleeding polyps in the sigmoid colon was noted, She had diverticulosis in the sigmoid colon as well as nonbleeding internal hemorrhoids. Had an BM this morning, per staff, BM seems brown and no blood noted. Will continue monitoring black BM, and H/H. May need EGD if GI bleeding was confirmed. GI following, appreciate help. (3) Hypokalemia Current Visit: No Status: Acute Assessment and Plan: replaced and monitor K. (4) Diastolic heart failure with preserved ejection fraction Current Visit: No Status: Chronic Assessment and Plan: cont home meds (5) Acute exacerbation of chronic obstructive airways disease Current Visit: Yes Status: Acute Assessment and Plan: SOB COPD exacerbation caused by URTI, allergen exposure, medication nonocompliance CXR: Mild left basilar atelectasis or infiltrate. PLAN: - Aerosols q 4 hr and PRN SOB - Solu-medrol 40 mg IV q 6 hr - O2 to keep SpO2 higher than 92% (SpO higher than 95% if CAD) - CBCD, BMP in AM - Sputum Gram stain, C+S - Tylenol 650 mg PO q 4-6 hr PRN pain/fever - Heparin 5000 U SQ BID - Home meds - check the list and restart - ABs (6) Anemia Current Visit: Yes Status: Acute Assessment and Plan: Most likely 2/2 chronic blood loss in the sitting of H/O Duodenal ulcer. HGB is stable, no evidence of active bleeding. We will cont to monitor H&H DVT Prophylaxis: SCDs. - Time Spent with Patient Total time spent is greater than 50% in coordination of care (as documented) at patient's floor/unit and/or counseling patient: Greater than 35 minutes Plan of Care Discussed with: patient Internal Medicine: Result - Labs CBC & Chem 7: 01/01/19 04:13 01/01/19 04:13 Labs: Short CBC 12/31/18 01/01/19 Range/Units 10:52 04:13 WBC 6.1 4.5 (4.3-11.1) K/mcL Hgb 11.6 9.5 L D (11.5-15.4) g/dL Hct 35.1 L 28.9 L (35.3-44.9) % Plt Count 393 353 (140-400) K/mcL Neutrophils # 4.7 4.0 (1.6-8.9) K/mcL BMP 12/31/18 01/01/19 10:52 04:13 Sodium 133 L 133 L Potassium 2.6 L 3.1 L Chloride 95 L 104 Carbon Dioxide 27 24 BUN 9 12 Creatinine 0.48 L 0.50 L Glucose 74 126 H Calcium 8.7 8.1 L Cardiac Enzymes 12/31/18 Range/Units 10:52 Troponin I < 0.03 (< 0.04) ng/mL Liver Function 01/01/19 Range/Units 04:13 Total Bilirubin 0.3 (0.3-1.0) mg/dL AST 11 L (13-39) Units/L ALT 9 (7-52) Units/L Alkaline Phosphatase 55 (34-104) Units/L Albumin 2.9 L (3.5-5.7) g/dL - ABG Interpretation ABG results: PT/INR, D-dimer PT 11.7 Seconds (9.4-12.1) 01/01/19 04:13 - Impressions Impressions Chest X-Ray 12/31/18 10:45 IMPRESSION: Mild left basilar atelectasis or infiltrate. D/ / Laina Brown MD / Laina Brown MD Interpreting Provider: Laina Brown MD Consult Discharge Plan - Plan Referrals: Adrian Dominguez [Primary Care Provider] - 01/07/19 10:45 am ___ (1) Pneumonia Qualifiers: Pneumonia type: due to unspecified organism Laterality: bilateral Lung location: unspecified part of lung Qualified Code(s): J18.9 - Pneumonia, unspec ified organism (6) Anemia Qualifiers: Qualified Code(s): D64.9 - Anemia, unspecified
[2019-01-01] MEDS: traMADol 50 MG TABLET PO PRN ×2 (10:37→17:17)
[2019-01-01] MEDS: ALPRAZolam 0.25 MG TABLET PO PRN ×2 (10:37→17:17)
--- NOTE | 2019-01-01 12:37 | Gastroenterology Consult Note ---
<Poli Lyons Kerline - Last Filed: 01/01/19 12:35> Date of Encounter: 01/01/19 Time of Encounter: 09:00 - Assessment and plan (1) Anemia Current Visit: Yes Status: Acute Assessment and plan: Hgb 11.6 on admission and 9.5 this morning. Planned for EGD this morning, but patient was fed breakfast. Continue to monitor CBC and transfuse PRBC as needed. Recent EGD with no bleeding noted. Anemia could be due to chronic disease. No overt bleeding noted. Follow up as outpatient in GI office. Repeat CBC in one week. Qualifiers: Anemia type: unspecified type Qualified Code(s): D64.9 - Anemia, unspecified (2) Duodenal ulcer disease Current Visit: No Status: Acute Assessment and plan: Noted on EGD September 2018. Ulcers not seen on repeat EGD 12/11/2018. Recommend daily PPI. - Time Spent With Patient Total time spent is greater than 50% in coordination of care (as documented) at patient's floor/unit and/or counseling patient: GI History of Present Illness - Data of Consult Patient: known to practice within the last 3 years Consult date: 01/01/19 Requesting Physician: Dara Hatch - Consult Narrative Reason for consult: Dark stool History of present illness: Ms. Paiz is a 68 year old female with PMHx of COPD, GERD, HTN, IBS duodenal ulcer presented with one week of history of generalized malaise associated with SOB and cough. She also c/o lightheadedness, dizziness, epigastric pain associated with nausea and non-bloody vomiting. She reports several episodes of black loose stools. She states she was not taking Protonix for her GERD. Hgb 11.6 on admission and 9.5 this morning. Procedures: EGD 12/11/2018 Dr. Spencer: Small hiatal hernia, gastritis. Colonoscopy 12/11/2018 Dr. Spencer: Two hyperplastic polyps, one tubular adenoma, internal hemorrhoids. EGD 09/19/2018 Dr. Spencer: Mild Schatzki ring, 2 cm hiatal hernia, nonbleeding erosive gastropathy, duodenal erosions, multiple nonbleeding duodenal ulcers. Colonoscopy 09/19/2018 Dr. Spencer: Two 6-10 mm, diverticulosis, internal hemorrhoids. NSAIDs: None Anticoagulation: None Past Med Surg Social Fam HX - Past Medical History Medical history: asthma, COPD, GERD, hypertension, migraine, other Additional medical history: IBS Psychiatric history: anxiety, depression - Past Surgical History Surgical History: cholecystectomy, hysterectomy, sinus surgery - Social History Smoking Status: Current every day smoker Packs per day: 1 Smokeless Tobacco Status: No Alcohol use: none Drug use: none - Family History Mother Living Status: Hx Family Cardiac Disorders: Yes Hx Family Respiratory Disorders: No Hx Family Cancer: No Hx Family GI Disorders: No Hx Family Endocrine Disorder: No Hx Family Neuromuscular Disorders: No Hx Family Neurologic Disorders: No Hx Family HEENT Disorders: No Hx Family Autoimmune Disorders: No Father Living Status: Hx Family Cardiac Disorders: Yes Hx Family Respiratory Disorders: No Hx Family Cancer: No Hx Family GI Disorders: No Hx Family Endocrine Disorder: No Hx Family Neuromuscular Disorders: No Hx Family Neurologic Disorders: No Hx Family HEENT Disorders: No Hx Family Autoimmune Disorders: No - Gastrointestinal Gastrointestinal: Present: as per HPI - Constitutional Constitutional: as per HPI - EENT Eyes: as per HPI Ears: Present: as per HPI Nose, mouth and throat: Present: as per HPI - Cardiovascular Cardiovascular ROS: Present: as per HPI - Respiratory Respiratory IM: Present: as per HPI - Genitourinary Genitourinary: Absent: change in color, Urinary frequency - Neurological ROS Neurological GI: Present: as per HPI - Hematologic/Lymphatic Hematologic/Lymphatic pediatric: Present: as per HPI - Musculoskeletal Musculoskeletal ROS GI: Present: as per HPI - Integumentary Integumentary GI: Present: as per HPI - Psychiatric ROS Psychiatric GI: Present: as per HPI - Endocrine Endocrine IM: Present: as per HPI - Constitutional Vitals: Temp Pulse Resp BP Pulse Ox 97.9 F 77 18 144/71 96 01/01/19 10:56 01/01/19 10:56 01/01/19 11:00 01/01/19 10:56 01/01/19 11:00 General appearance: Present: cooperative, A&O X 3, no acute distress, answers qu estions appropriately - Head Head exam: Present: atraumatic, normocephalic - Eye Eye exam: Present: normal appearance, sclera anicteric - ENT ENT exam: Present: mucous membranes moist - Neck Neck exam general surgery: Present: normal inspection, trachea midline - Respiratory Respiratory exam: Present: CTAB. Absent: rales, rhonchi - Cardiovascular Cardiovascular exam: Present: RRR, +S1, +S2 - GI/Abdominal GI/Abdominal exam: Present: soft, tenderness (epigastric), no peritoneal signs. Absent: distended, firm, guarding - Rectal Rectal exam: Present: deferred - Extremities Exam Extremities exam: Present: warm - Neurological Exam Neurological exam: Present: no focal deficits - Psychiatric Psychiatric exam: Present: normal affect, normal mood - Skin Skin exam: Present: dry, intact, normal color, warm Results - Labs CBC & Chem 7: 01/01/19 04:13 01/01/19 04:13 Labs: Last Result 01/01/19 04:13 Calcium 8.1 L Triglycerides 44 Entire Visit 01/01/19 01/01/19 01/01/19 04:13 04:13 04:13 Hgb 9.5 L D Hct 28.9 L PT 11.7 Total Bilirubin 0.3 AST 11 L ALT 9 - ABG ABG results: PT/INR, D-dimer PT 11.7 Seconds (9.4-12.1) 01/01/19 04:13 Consult Discharge Plan - Plan Referrals: Adrian Dominguez [Primary Care Provider] - 01/07/19 10:45 am <Jesus Paulson - Last Filed: 01/01/19 14:59> Date of Encounter: 01/01/19 Time of Encounter: 15:00 - Time Spent With Patient Total time spent is greater than 50% in coordination of care (as documented) at patient's floor/unit and/or counseling patient: GI History of Present Illness - Data of Consult Requesting Physician: Dara Hatch - Consult Narrative History of present illness: Ms. Paiz is a 68 year old female - Constitutional Vitals: Temp Pulse Resp BP Pulse Ox 97.9 F 77 18 144/71 96 01/01/19 10:56 01/01/19 10:56 01/01/19 11:00 01/01/19 10:56 01/01/19 11:00 Results - Labs CBC & Chem 7: 01/01/19 04:13 01/01/19 04:13 Labs: Last Result 01/01/19 04:13 Calcium 8.1 L Triglycerides 44 Entire Visit 06/01/01/19 01/01/19 04:13 04:13 04:13 Hgb 9.5 L D Hct 28.9 L PT 11.7 Total Bilirubin 0.3 AST 11 L ALT 9 - ABG ABG results: PT/INR, D-dimer PT 11.7 Seconds (9.4-12.1) 01/01/19 04:13 - Attending Attestation I have personally performed a face to face evaluation on this patient. I have reviewed and agree with the care plan. History and Exam by me shows: Patient seen currently denies any blood in her stool or abdominal pain on examination abdomen is soft. Assessment: Patient with anemia which is multifactorial no overt GI bleeding. Does has a history of peptic ulcer disease with duodenal ulcer in the past but on repeat EGD also has resolved. Recommendation: Follow H&H if continued to drop her hemoglobin then we will do EGD otherwise no indication acute for scoping
[2019-01-01] MEDS: Piperacillin/Tazobactam 3.375 GM in 0.9 % Sodium Chloride Mini Bag 100 ML IVPB SCH (17:17)
[2019-01-01] MEDS: rOPINIRole 0.25 MG TABLET PO SCH (21:52)
[2019-01-02] MEDS: traMADol 50 MG TABLET PO PRN ×3 (00:08→16:47)
[2019-01-02] MEDS: MethylPREDNISolone 40 MG/ML VIAL IVP SCH ×2 (00:08→06:37)
[2019-01-02] MEDS: ALPRAZolam 0.25 MG TABLET PO PRN ×3 (00:09→16:47)
[2019-01-02] MEDS: Piperacillin/Tazobactam 3.375 GM in 0.9 % Sodium Chloride Mini Bag 100 ML IVPB SCH ×3 (00:09→16:48)
[2019-01-02 01:54] LABS: Hematocrit 27.3 % (35.3-44.9); Hemoglobin 9.3 g/dL (11.5-15.4); Mean Corpuscular HGB Conc 34.1 g/dL (31.6-35.5); Mean Corpuscular Hemoglobin 29.9 pg (28.0-33.3); Mean Corpuscular Volume 87.8 fL (83.0-100.0); Mean Platelet Volume 9.2 fL (9.4-12.4); Platelet Count 315 K/mcL (140-400); Red Blood Count 3.11 M/mcL (3.82-4.97); Red Cell Distribution Width 12.7 % (11.5-14.5)
[2019-01-02 01:59] LABS: White Blood Count 11.8 K/mcL (4.3-11.1)
[2019-01-02 02:16] LABS: BUN/Creatinine Ratio 36 (6-26); Blood Urea Nitrogen 21 mg/dL (8-23); Carbon Dioxide 24 mEq/L (23-29); Chloride 101 mEq/L (98-107); Glucose 131 mg/dL (70-105); Magnesium 1.5 mg/dL (1.6-2.6); Osmolality,Calculated 279 (280-300); Phosphorous 2.6 mg/dL (2.7-4.5); Potassium 4.2 mEq/L (3.5-5.1); Sodium 132 mEq/L (136-145); eGFR For African Americans > 60 (> 60); eGFR For Non-African Americans > 60 (> 60)
[2019-01-02] MEDS: Ipratropium/Albuterol Neb 3 ML IH SCH ×5 (04:40→22:38)
[2019-01-02] MEDS: Pantoprazole 40 MG VIAL IVP SCH ×2 (06:37→16:48)
[2019-01-02] MEDS: Losartan/HCTZ 50-12.5 TABLET PO SCH (08:45)
[2019-01-02] MEDS: Cholecalciferol (D-3) 1,000 UNIT TABLET PO SCH (08:45)
[2019-01-02] MEDS: Gabapentin 400 MG CAPSULE PO SCH ×3 (08:46→20:35)
[2019-01-02] MEDS: Cyanocobalamin (B-12) 1,000 MCG TABLET PO SCH (08:46)
[2019-01-02] MEDS: BUSPIRONE HCL 10 MG TABLET PO SCH ×2 (08:46→20:35)
[2019-01-02] MEDS: (Fluticasone/Umeclidin/Vilanter [Trelegy Ellipta 100-) IH SCH (09:05)
--- NOTE | 2019-01-02 09:13 | Internal Med Progress Note ---
Hospitalist Progress Note - Encounter Date of Encounter: 01/02/19 Time of Encounter: 09:11 - Subjective Interval History: Pt seen and examined in the room. She has no black BM or bloody stool overnight. No bloody emesis as well. She has occasional cough with white mucus, but denies fever, chills, or night sweats. - Exam Vitals: Temp Pulse Resp BP Pulse Ox 97.9 F 69 17 132/63 94 01/02/19 07:49 01/02/19 07:49 01/02/19 07:49 01/02/19 07:49 01/02/19 07:49 Exam: PHYSICAL EXAMINATION: GENERAL APPEARANCE: The patient is alert, oriented and in no acute distress. HEENT: Head is normocephalic. The sinuses are nontender. Pupils are equal and reactive. The nares are patent. Oropharynx clear without lesions. NECK: Supple without lymphadenopathy. HEART: Regular rate and rhythm. LUNGS: No crackles or wheezes are heard. ABDOMEN: Soft, nontender, nondistended with good bowel sounds heard. Inguinal area is normal. EXTREMITIES: Without cyanosis, clubbing or edema. NEUROLOGICAL: Gross nonfocal. SKIN: Warm and dry without any rash. - Assessment and Plan (1) Pneumonia Current Visit: Yes Status: Acute Assessment and Plan: SOB due to Pneumonia Failed OP ABx Tx- Structural lung disease- Negative Legionella or pneumocossus antigen. Pending blood cx. Continue Zosyn. DC IV steroid. (2) Duodenal ulcer disease Current Visit: No Status: Acute Assessment and Plan: The patient underwent upper and lower endoscopy in 12/06. Duodenal ulcers (nonbleeding) and to 6-10 mm nonbleeding polyps in the sigmoid colon was noted, She had diverticulosis in the sigmoid colon as well as nonbleeding internal hemorrhoids. Hgb 11.6 ->9.5 ->9.3. No active bleeding now. Continue monitoring, continue IV PPI and carafate. GI recommended monitoring and f/u as outpatient if stable. (3) Hypokalemia Current Visit: No Status: Resolved (4) Diastolic heart failure with preserved ejection fraction Current Visit: No Status: Chronic Assessment and Plan: cont home meds (5) Acute exacerbation of chronic obstructive airways disease Current Visit: Yes Status: Acute Assessment and Plan: Likely secondary to pneumonia, stable, dc IV steroid. continue other treatment including duoneb. (6) Anemia Current Visit: Yes Status: Acute Assessment and Plan: Most likely 2/2 chronic blood loss in the sitting of H/O Duodenal ulcer. HGB is stable, no evidence of active bleeding. We will cont to monitor H&H DVT Prophylaxis: SCDs. - Time Spent with Patient Total time spent is greater than 50% in coordination of care (as documented) at patient's floor/unit and/or counseling patient: Greater than 35 minutes Plan of Care Discussed with: patient Internal Medicine: Result - Labs CBC & Chem 7: 01/02/19 01:38 01/02/19 01:38 Labs: Short CBC 01/02/19 Range/Units 01:38 WBC 11.8 H D (4.3-11.1) K/mcL Hgb 9.3 L (11.5-15.4) g/dL Hct 27.3 L (35.3-44.9) % Plt Count 315 (140-400) K/mcL BMP 01/02/19 01:38 Sodium 132 L Potassium 4.2 D Chloride 101 Carbon Dioxide 24 BUN 21 Creatinine 0.58 L Glucose 131 H Calcium 8.0 L - ABG Interpretation ABG results: PT/INR, D-dimer PT 11.7 Seconds (9.4-12.1) 01/01/19 04:13 Consult Discharge Plan - Plan Referrals: Adrian Dominguez [Primary Care Provider] - 01/07/19 10:45 am (1) Pneumonia Qualifiers: Pneumonia type: due to unspecified organism Laterality: bilateral Lung location: unspecified part of lung Qualified Code(s): J18.9 - Pneumonia, unspecified organism (6) Anemia Qualifiers: Anemia type: unspecified type Qualified Code(s): D64.9 - Anemia, unspecified
[2019-01-02] MEDS: Mag Hydrox/Al Hydrox/Simeth 30 ML UDC PO PRN (12:48)
[2019-01-02] MEDS: Cholestyramine 4 GM POWD.PACK PO SCH ×2 (17:45→20:39)
[2019-01-02] MEDS: rOPINIRole 0.25 MG TABLET PO SCH (20:35)
[2019-01-03] MEDS: Piperacillin/Tazobactam 3.375 GM in 0.9 % Sodium Chloride Mini Bag 100 ML IVPB SCH ×2 (00:45→08:13)
[2019-01-03] MEDS: ALPRAZolam 0.25 MG TABLET PO PRN ×3 (00:59→18:01)
[2019-01-03] MEDS: traMADol 50 MG TABLET PO PRN ×3 (01:00→18:01)
[2019-01-03] MEDS: Ipratropium/Albuterol Neb 3 ML IH SCH ×4 (04:36→23:01)
[2019-01-03 04:46] LABS: Basophils % 0.2 %; Eosinophils # 0.1 K/mcL (0.0-0.6); Eosinophils % 0.5 %; Hematocrit 30.1 % (35.3-44.9); Hemoglobin 10.1 g/dL (11.5-15.4); Immature Granulocytes % 0.6 % (0-4); Lymphocytes # 1.7 K/mcL (0.6-4.6); Lymphocytes % 17.1 %; Mean Corpuscular HGB Conc 33.6 g/dL (31.6-35.5); Mean Corpuscular Hemoglobin 29.5 pg (28.0-33.3); Mean Platelet Volume 9.5 fL (9.4-12.4); Monocytes # 1.1 K/mcL (0.0-1.3); Monocytes % 10.8 %; Neutrophils # 7.1 K/mcL (1.6-8.9); Platelet Count 346 K/mcL (140-400); Red Blood Count 3.42 M/mcL (3.82-4.97); Red Cell Distribution Width 13.2 % (11.5-14.5); Segmented Neutrophils % 70.8 %; White Blood Count 10.1 K/mcL (4.3-11.1)
[2019-01-03] MEDS: Mag Hydrox/Al Hydrox/Simeth 30 ML UDC PO PRN ×2 (04:58→18:01)
[2019-01-03] MEDS: Pantoprazole 40 MG VIAL IVP SCH ×2 (04:58→18:01)
[2019-01-03 05:05] LABS: BUN/Creatinine Ratio 18 (6-26); Blood Urea Nitrogen 12 mg/dL (8-23); Calcium 8.1 mg/dL (8.6-10.3); Carbon Dioxide 29 mEq/L (23-29); Chloride 102 mEq/L (98-107); Glucose 83 mg/dL (70-105); Magnesium 1.7 mg/dL (1.6-2.6); Osmolality,Calculated 283 (280-300); Phosphorous 3.6 mg/dL (2.7-4.5); Potassium 4.2 mEq/L (3.5-5.1); Sodium 137 mEq/L (136-145); eGFR For African Americans > 60 (> 60); eGFR For Non-African Americans > 60 (> 60)
[2019-01-03] MEDS: Cyanocobalamin (B-12) 1,000 MCG TABLET PO SCH (08:12)
[2019-01-03] MEDS: Cholecalciferol (D-3) 1,000 UNIT TABLET PO SCH (08:12)
[2019-01-03] MEDS: Losartan/HCTZ 50-12.5 TABLET PO SCH (08:12)
[2019-01-03] MEDS: Cholestyramine 4 GM POWD.PACK PO SCH ×4 (08:12→22:08)
[2019-01-03] MEDS: (Fluticasone/Umeclidin/Vilanter [Trelegy Ellipta 100-) IH SCH (08:12)
[2019-01-03] MEDS: Gabapentin 400 MG CAPSULE PO SCH ×3 (08:12→22:05)
[2019-01-03] MEDS: BUSPIRONE HCL 10 MG TABLET PO SCH ×2 (08:12→22:08)
--- NOTE | 2019-01-03 09:23 | Internal Med Progress Note ---
Hospitalist Progress Note - Encounter Date of Encounter: 01/03/19 Time of Encounter: 09:20 - Subjective Interval History: Pt seen and examined in the room. Reported improved cough and sob. Still having lightheadedness, abd pain and nausea. No bloody stool or black BM. - Exam Vitals: Temp Pulse Resp BP Pulse Ox 98.1 F 73 16 168/81 91 01/03/19 08:00 01/03/19 08:00 01/03/19 08:00 01/03/19 08:00 01/03/19 08:00 Exam: PHYSICAL EXAMINATION: GENERAL APPEARANCE: The patient is alert, oriented and in no acute distress. HEENT: Head is normocephalic. The sinuses are nontender. Pupils are equal and reactive. The nares are patent. Oropharynx clear without lesions. NECK: Supple without lymphadenopathy. HEART: Regular rate and rhythm. LUNGS: No crackles or wheezes are heard. ABDOMEN: Soft, nontender, nondistended with good bowel sounds heard. Inguinal area is normal. EXTREMITIES: Without cyanosis, clubbing or edema. NEUROLOGICAL: Gross nonfocal. SKIN: Warm and dry without any rash. - Assessment and Plan (1) Pneumonia Current Visit: Yes Status: Acute Assessment and Plan: SOB due to Pneumonia Failed OP ABx Tx- Structural lung disease- Negative Legionella or pneumocossus antigen. blood cx no growth. dc Zosyn and change to oral augmentin. DC IV steroid. Improving, anticipate dc in am. (2) Duodenal ulcer disease Current Visit: No Status: Acute Assessment and Plan: The patient underwent upper and lower endoscopy in 12/06. Duodenal ulcers (nonbleeding) and to 6-10 mm nonbleeding polyps in the sigmoid colon was noted, She had diverticulosis in the sigmoid colon as well as nonbleeding internal hemorrhoids. Hgb 11.6 ->9.5 ->9.3. No active bleeding now. Continue monitoring, continue IV PPI and carafate. GI recommended monitoring and f/u as outpatient if stable. (3) Hypokalemia Current Visit: No Status: Resolved (4) Diastolic heart failure with preserved ejection fraction Current Visit: No Status: Chronic Assessment and Plan: cont home meds (5) Acute exacerbation of chronic obstructive airways disease Current Visit: Yes Status: Acute Assessment and Plan: Likely secondary to pneumonia, stable, dc IV steroid. continue other treatment including duoneb. (6) Anemia Current Visit: Yes Status: Acute Assessment and Plan: Most likely 2/2 chronic blood loss in the sitting of H/O Duodenal ulcer. HGB is stable, no evidence of active bleeding. H/H stable. DVT Prophylaxis: SCDs. - Time Spent with Patient Total time spent is greater than 50% in coordination of care (as documented) at patient's floor/unit and/or counseling patient: Greater than 35 minutes Plan of Care Discussed with: patient Internal Medicine: Result - Labs CBC & Chem 7: 01/03/19 04:06 01/03/19 04:06 Labs: Short CBC 01/03/19 Range/Units 04:06 WBC 10.1 (4.3-11.1) K/mcL Hgb 10.1 L (11.5-15.4) g/dL Hct 30.1 L (35.3-44.9) % Plt Count 346 (140-400) K/mcL Neutrophils # 7.1 (1.6-8.9) K/mcL BMP 01/03/19 04:06 Sodium 137 Potassium 4.2 Chloride 102 Carbon Dioxide 29 BUN 12 Creatinine 0.68 Glucose 83 Calcium 8.1 L - ABG Interpretation ABG results: PT/INR, D-dimer PT 11.7 Seconds (9.4-12.1) 01/01/19 04:13 Consult Discharge Plan - Plan Referrals: Adrian Dominguez [Primary Care Provider] - 01/07/19 10:45 am (1) Pneumonia Qualifiers: Pneumonia type: due to unspecified organism Laterality: bilateral Lung location: unspecified part of lung Qualified Code(s): J18.9 - Pneumonia, unspecified organism (6) Anemia Qualifiers: Anemia type: unspecified type Qualified Code(s): D64.9 - Anemia, unspecified
[2019-01-03] MEDS: rOPINIRole 0.25 MG TABLET PO SCH (22:05)
[2019-01-04] MEDS: traMADol 50 MG TABLET PO PRN ×3 (03:26→23:11)
[2019-01-04] MEDS: ALPRAZolam 0.25 MG TABLET PO PRN ×2 (03:26→11:27)
[2019-01-04] MEDS: Ipratropium/Albuterol Neb 3 ML IH SCH ×4 (04:55→23:00)
[2019-01-04 07:12] LABS: Basophils % 0.4 %; Eosinophils # 0.2 K/mcL (0.0-0.6); Eosinophils % 2.3 %; Hematocrit 29.5 % (35.3-44.9); Hemoglobin 9.8 g/dL (11.5-15.4); Immature Granulocytes % 0.4 % (0-4); Lymphocytes # 1.2 K/mcL (0.6-4.6); Lymphocytes % 15.5 %; Mean Corpuscular HGB Conc 33.2 g/dL (31.6-35.5); Mean Corpuscular Hemoglobin 29.8 pg (28.0-33.3); Mean Corpuscular Volume 89.7 fL (83.0-100.0); Mean Platelet Volume 9.6 fL (9.4-12.4); Monocytes % 12.3 %; Neutrophils # 5.4 K/mcL (1.6-8.9); Platelet Count 340 K/mcL (140-400); Red Blood Count 3.29 M/mcL (3.82-4.97); Segmented Neutrophils % 69.1 %; White Blood Count 7.7 K/mcL (4.3-11.1)
[2019-01-04 07:36] LABS: BUN/Creatinine Ratio 19 (6-26); Blood Urea Nitrogen 8 mg/dL (8-23); Calcium 8.3 mg/dL (8.6-10.3); Carbon Dioxide 29 mEq/L (23-29); Chloride 99 mEq/L (98-107); Glucose 84 mg/dL (70-105); Magnesium 1.6 mg/dL (1.6-2.6); Osmolality,Calculated 280 (280-300); Phosphorous 3.3 mg/dL (2.7-4.5); Potassium 3.8 mEq/L (3.5-5.1); Sodium 136 mEq/L (136-145); eGFR For African Americans > 60 (> 60); eGFR For Non-African Americans > 60 (> 60)
--- NOTE | 2019-01-04 08:11 | Discharge Summary ---
- NOTES TO OUTPATIENT PROVIDER Notes to Outpatient Provider: f/u with PCP within a week. f/u with GI within a week. Orders not resulted at time of discharge: Pending orders 12/31/18 12:42 Culture,Blood [BC] Stat 12/31/18 13:12 Occult Blood,Stool [BF] Stat 12/31/18 15:38 Culture,Sputum with Gram Stain [RM] Routine Date of Encounter: 01/04/19 Time of Encounter: 08:09 - Discharge Diagnosis (1) Pneumonia Priority: Primary Status: Acute Assessment and Plan: SOB due to Pneumonia Failed OP ABx Tx- Structural lung disease- Negative Legionella or pneumocossus antigen. blood cx no growth. dc Zosyn and change to oral augmentin. DC IV steroid. Improving, anticipate dc in am. Qualifiers: Pneumonia type: due to unspecified organism Laterality: bilateral Lung location: unspecified part of lung Qualified Code(s): J18.9 - Pneumonia, uns pecified organism (2) Duodenal ulcer disease Priority: Secondary Status: Acute Assessment and Plan: The patient underwent upper and lower endoscopy in 12/06. Duodenal ulcers (nonbleeding) and to 6-10 mm nonbleeding polyps in the sigmoid colon was noted, She had diverticulosis in the sigmoid colon as well as nonbleeding internal hemorrhoids. Hgb 11.6 ->9.5 ->9.3 ->10.1 -> 9.8. No active bleeding now. Continue monitoring, continue IV PPI and carafate. GI recommended monitoring and f/u as outpatient if stable. (3) Hypokalemia Priority: Primary Status: Resolved (4) Diastolic heart failure with preserved ejection fraction Priority: Secondary Status: Chronic (5) Acute exacerbation of chronic obstructive airways disease Priority: Primary Status: Acute (6) Anemia Priority: Primary Status: Acute Assessment and Plan: Most likely 2/2 chronic blood loss in the sitting of H/O Duodenal ulcer. HGB is stable, no evidence of active bleeding. H/H stable. Qualifiers: Anemia type: unspecified type Qualified Code(s): D64.9 - Anemia, unspecified Hospital course: Ms. Paiz is a 68 year old female with past medical history of COPD, atrial fibrillation, cardiomyopathy, CHF, coronary artery disease, diabetes, hyperlipidemia, hypertension, renal disease , duodenal ulcer presenting for one week of history of generalized malaise associated with SOB and cough. The patient was self diagnosed with bronchitis and had he PCP prescribing azithromycin Z-Melecio that she took for the last 5 days with no improvement. She is also c/o lightheadedness, dizziness, abdominal pain associated with nausea and nonbloody vomiting. She had several episodes of black loose stool. She was evaluated by ER and her CXR was suggestive of COPD exacerbation and possible pneumonia, she was admitted for further evaluation and management. Labs showed multiple electrolytes imbalance including hyponatremia, hypocalcemia, hypokalemia, hypomagnesemia, and hypophosphatemia. IV antibiotics were started with Zosyn, bronchodilators was also prescribed, electrolytes were replaced. Initially, hemoglobin dropped, but has been steady at 10.0 in the past 3 days. Patient does not have signs and symptoms of active GI bleeding. GI was consulted, given the history of duodenal ulcer, recommended continue PPI and follow-up as outpatient. After 4 days of treatment, electrolytes imbalance has corrected. Patient respiratory status has improved and back to baseline, IV antibiotics has been switched to oral. Patient is discharged home today, she was instructed to continue follow-up with PCP and GI as scheduled, continue to take oral antibiotics as prescribed. Discharge discussed with: patient Time spent discussing smoking cessation with patient: more than 10 minutes - Time Spent with Patient Total time spent providing and/or coordinating discharge services: Time spent: Greater than 30 minutes - Discharge Medications Prescriptions: New Amoxicillin/Clavulanate [Augmentin] 875 mg PO BIDWM #14 tablet Mag Hydrox/Al Hydrox/Simeth [Maalox] 15 ml PO Q6HR PRN #20 udc PRN Reason: Constipation Continued Simvastatin [Zocor] 40 mg PO HS Cyanocobalamin (Vitamin B-12) [Vitamin B-12] 1,000 mcg PO DAILY Cholecalciferol (D-3) [Vitamin D] 1,000 unit PO DAILY Albuterol Sulfate [Proair Hfa] 2 puff IH Q4H PRN PRN Reason: Shortness Of Breath Gabapentin [Neurontin] 800 mg PO TID Buspirone HCl [Buspar] 30 mg PO BID Fluticasone Propionate Nasal [Flonase] 2 spr NS DAILY Fluticasone/Umeclidin/Vilanter [Trelegy Ellipta 100-62.5-25] 1 puff IH DAILY Losartan/Hydrochlorothiazide [Losartan-Hctz 100-25 mg Tab] 1 tab PO DAILY Rizatriptan Benzoate [Maxalt Compliance Analyst] 10 mg PO DAILY PRN PRN Reason: Migraine Headache Ropinirole HCl [Requip] 0.5 mg PO HS Sertraline [Zoloft] 100 mg PO DAILY Tramadol HCl [Ultram] 50 mg PO TID PRN PRN Reason: Pain Cholestyramine 4 gm PO QIDAC #120 powd.pack Pantoprazole Sodium [Protonix] 40 mg PO QAM #30 tablet. Dicyclomine Hcl [Bentyl] 20 mg PO QID Potassium Chloride [K-Tab ER] 10 meq PO DAILY ALPRAZolam [Xanax 0.5 MG Tablet] 0.25 mg PO TID PRN PRN Reason: Anxiety Clopidogrel Bisulfate [Plavix] 75 mg PO DAILY hydrOXYzine HCl [Hydroxyzine HCl] 25 mg PO TID Home Medications: Albuterol Sulfate [Proair Hfa] 2 puff IH Q4H PRN 02/27/18 [History] Cholecalciferol (D-3) [Vitamin D] 1,000 unit PO DAILY 02/27/18 [History] Cyanocobalamin (Vitamin B-12) [Vitamin B-12] 1,000 mcg PO DAILY 02/27/18 [History] Gabapentin [Neurontin] 800 mg PO TID 02/27/18 [History] Simvastatin [Zocor] 40 mg PO HS 02/27/18 [History] Buspirone HCl [Buspar] 30 mg PO BID 09/17/18 [History] Fluticasone Propionate Nasal [Flonase] 2 spr NS DAILY 09/17/18 [History] Fluticasone/Umeclidin/Vilanter [Trelegy Ellipta 100-62.5-25] 1 puff IH DAILY 09/17/18 [History] Losartan/Hydrochlorothiazide [Losartan-Hctz 100-25 mg Tab] 1 tab PO DAILY 09/17/18 [History] Rizatriptan Benzoate [Maxalt Compliance Analyst] 10 mg PO DAILY PRN 09/17/18 [History] Ropinirole HCl [Requip] 0.5 mg PO HS 09/17/18 [History] Sertraline [Zoloft] 100 mg PO DAILY 09/17/18 [History] Tramadol HCl [Ultram] 50 mg PO TID PRN 09/17/18 [History] Cholestyramine 4 gm PO QIDAC #120 powd.pack 09/21/18 [Rx] Pantoprazole Sodium [Protonix] 40 mg PO QAM #30 tablet. 09/21/18 [Rx] ALPRAZolam [Xanax 0.5 MG Tablet] 0.25 mg PO TID PRN 01/01/19 [History] Clopidogrel Bisulfate [Plavix] 75 mg PO DAILY 01/01/19 [History] Dicyclomine Hcl [Bentyl] 20 mg PO QID 01/01/19 [History] Potassium Chloride [K-Tab ER] 10 meq PO DAILY 01/01/19 [History] hydrOXYzine HCl [Hydroxyzine HCl] 25 mg PO TID 01/01/19 [History] Amoxicillin/Clavulanate [Augmentin] 875 mg PO BIDWM #14 tablet 01/04/19 [Rx] Mag Hydrox/Al Hydrox/Simeth [Maalox] 15 ml PO Q6HR PRN #20 udc 01/04/19 [Rx] Allergies/Adverse Reactions: Allergy/AdvReac Type Severity Reaction Status Date / Time cefdinir Allergy Diarrhea Verified 01/01/19 15:59 cefuroxime [From Ceftin] Allergy Diarrhea Verified 01/01/19 15:59 levofloxacin [From Levaquin] Allergy Hives Verified 01/01/19 15:59 codeine AdvReac Nausea Verified 01/01/19 15:59 latex AdvReac Hives Verified 01/01/19 15:59 Date of admission: 01/01/19 17:18 Primary care physician: Adrian Dominguez Consults: 12/31/18 15:25 Consult to Gastroenterology [CONS] Routine Consulting Provider: Gastroenterology Darline Reason for Consult: DARK STOOL. H/O DUODENAL ULCER Time Notified: 15:29 Call Completed: Yes 12/31/18 15:38 Consult to Nurse Navigator [CONS] Routine Comment: COPD, PNEUMONIA 01/01/19 11:54 Consult to Wound Care [CONS] Routine Reason for Consult: right upper arm wound, patient sees wound care outpatient Call Completed: No Anticipated date of discharge: 01/04/19 - Constitutional Vitals: Temp Pulse Resp BP Pulse Ox 97.4 F L 69 16 121/67 96 01/04/19 07:28 01/04/19 07:28 01/04/19 07:28 01/04/19 07:28 01/04/19 07:28 General appearance: Present: A&O X 3 Exam: PHYSICAL EXAMINATION: GENERAL APPEARANCE: The patient is alert, oriented and in no acute distress. HEENT: Head is normocephalic. The sinuses are nontender. Pupils are equal and reactive. The nares are patent. Oropharynx clear without lesions. NECK: Supple without lymphadenopathy. HEART: Regular rate and rhythm. LUNGS: No crackles or wheezes are heard. ABDOMEN: Soft, nontender, nondistended with good bowel sounds heard. Inguinal area is normal. EXTREMITIES: Without cyanosis, clubbing or edema. NEUROLOGICAL: Gross nonfocal. SKIN: Warm and dry without any rash. - Patient Status Disposition: Home, Self-Care Condition: Fair Functional capacity at discharge: independent ambulation Overall status at discharge: patient is progressing back to baseline - Discharge Instructions Follow Up With: Adrian Dominguez [Primary Care Provider] - 01/07/19 10:45 am - Diet and Activity Activity: increase activity as tolerated Diet: low fat, low cholesterol, low salt diet
[2019-01-04] MEDS: Cyanocobalamin (B-12) 1,000 MCG TABLET PO SCH (08:13)
[2019-01-04] MEDS: Cholestyramine 4 GM POWD.PACK PO SCH ×4 (08:13→22:15)
[2019-01-04] MEDS: BUSPIRONE HCL 10 MG TABLET PO SCH ×2 (08:14→22:13)
[2019-01-04] MEDS: Losartan/HCTZ 50-12.5 TABLET PO SCH (08:14)
[2019-01-04] MEDS: Gabapentin 400 MG CAPSULE PO SCH ×3 (08:14→22:14)
[2019-01-04] MEDS: Cholecalciferol (D-3) 1,000 UNIT TABLET PO SCH (08:14)
[2019-01-04] MEDS: (Fluticasone/Umeclidin/Vilanter [Trelegy Ellipta 100-) IH SCH (08:15)
--- NOTE | 2019-01-04 13:09 | Internal Med Progress Note ---
Hospitalist Progress Note - Encounter Date of Encounter: 01/04/19 Time of Encounter: 13:07 - Subjective Interval History: Pt seen and examined in the room. She stated that she does not feel good and feel weak. She does not think she is ready to go home. - Exam Vitals: Temp Pulse Resp BP Pulse Ox 97.4 F L 69 16 121/67 96 01/04/19 07:28 01/04/19 07:28 01/04/19 11:00 01/04/19 07:28 01/04/19 11:03 Exam: PHYSICAL EXAMINATION: GENERAL APPEARANCE: The patient is alert, oriented and in no acute distress. HEENT: Head is normocephalic. The sinuses are nontender. Pupils are equal and reactive. The nares are patent. Oropharynx clear without lesions. NECK: Supple without lymphadenopathy. HEART: Regular rate and rhythm. LUNGS: No crackles or wheezes are heard. ABDOMEN: Soft, nontender, nondistended with good bowel sounds heard. Inguinal area is normal. EXTREMITIES: Without cyanosis, clubbing or edema. NEUROLOGICAL: Gross nonfocal. SKIN: Warm and dry without any rash. - Assessment and Plan (1) Pneumonia Current Visit: Yes Status: Acute Assessment and Plan: SOB due to Pneumonia Failed OP ABx Tx- Structural lung disease- Negative Legionella or pneumocossus antigen. blood cx no growth. dc Zosyn and change to oral augmentin. DC IV steroid. Improving, anticipate dc in am. (2) Duodenal ulcer disease Current Visit: No Status: Acute Assessment and Plan: The patient underwent upper and lower endoscopy in 12/06. Duodenal ulcers (nonbleeding) and to 6-10 mm nonbleeding polyps in the sigmoid colon was noted, She had diverticulosis in the sigmoid colon as well as nonbleeding internal hemorrhoids. Hgb 11.6 ->9.5 ->9.3 ->10.1 -> 9.8. No active bleeding now. Continue monitoring, continue IV PPI and carafate. GI recommended monitoring and f/u as outpatient if stable. (3) Hypokalemia Current Visit: No Status: Resolved (4) Diastolic heart failure with preserved ejection fraction Current Visit: No Status: Chronic Assessment and Plan: cont home meds (5) Acute exacerbation of chronic obstructive airways disease Current Visit: Yes Status: Acute Assessment and Plan: Likely secondary to pneumonia, stable, dc IV steroid. continue other treatment including duoneb. (6) Anemia Current Visit: Yes Status: Acute Assessment and Plan: Most likely 2/2 chronic blood loss in the sitting of H/O Duodenal ulcer. HGB is stable, no evidence of active bleeding. H/H stable. DVT Prophylaxis: SCDs. - Time Spent with Patient Total time spent is greater than 50% in coordination of care (as documented) at patient's floor/unit and/or counseling patient: Greater than 35 minutes Plan of Care Discussed with: patient Internal Medicine: Result - Labs CBC & Chem 7: 01/04/19 05:50 01/04/19 05:50 Labs: Short CBC 01/04/19 Range/Units 05:50 WBC 7.7 (4.3-11.1) K/mcL Hgb 9.8 L (11.5-15.4) g/dL Hct 29.5 L (35.3-44.9) % Plt Count 340 (140-400) K/mcL Neutrophils # 5.4 (1.6-8.9) K/mcL BMP 01/04/19 05:50 Sodium 136 Potassium 3.8 Chloride 99 Carbon Dioxide 29 BUN 8 Creatinine 0.42 L Glucose 84 Calcium 8.3 L - ABG Interpretation ABG results: PT/INR, D-dimer PT 11.7 Seconds (9.4-12.1) 01/01/19 04:13 Consult Discharge Plan - Plan Referrals: Adrian Dominguez [Primary Care Provider] - 01/07/19 10:45 am Prescriptions: Amoxicillin/Clavulanate [Augmentin] 875 mg PO BIDWM #14 tablet Mag Hydrox/Al Hydrox/Simeth [Maalox] 15 ml PO Q6HR PRN #20 udc PRN Reason: Constipation __ (1) Pneumonia Qualifiers: Pneumonia type: due to unspecified organism Laterality: bilateral Lung location: unspecified part of lung Qualified Code(s): J18.9 - Pneumonia, unspe cified organism (6) Anemia Qualifiers: Anemia type: unspecified type Qualified Code(s): D64.9 - Anemia, unspecified
--- NOTE | 2019-01-04 13:27 | Physician Discharge Referral ---
Home Health/Hosp Referral Info Transfer to: Home Health Provider in Charge Post Discharge: PCP - Diagnosis (1) Pneumonia Priority: Primary Status: Acute (2) Duodenal ulcer disease Priority: Secondary Status: Acute (3) Hypokalemia Priority: Primary Status: Resolved (4) Diastolic heart failure with preserved ejection fraction Priority: Secondary Status: Chronic (5) Acute exacerbation of chronic obstructive airways disease Priority: Primary Status: Acute (6) Anemia Priority: Primary Status: Acute - Respiratory Orders Oxygen / L per min (2l) Smoking Cessation: Smoking cessation has been advised. For more information, call the [place] Tobacco Quit Line at 9-763-ICTI-NOW. - Services Needed Following services are medically necessary services: Nursing, Home Health Aide, Physical Therapy, Occupational Therapy - Transfer Medications Prescriptions: Amoxicillin/Clavulanate [Augmentin] 875 mg PO BIDWM #14 tablet Mag Hydrox/Al Hydrox/Simeth [Maalox] 15 ml PO Q6HR PRN #20 udc PRN Reason: Constipation Home Medications: Albuterol Sulfate [Proair Hfa] 2 puff IH Q4H PRN 02/27/18 [History] Cholecalciferol (D-3) [Vitamin D] 1,000 unit PO DAILY 02/27/18 [History] Cyanocobalamin (Vitamin B-12) [Vitamin B-12] 1,000 mcg PO DAILY 02/27/18 [History] Gabapentin [Neurontin] 800 mg PO TID 02/27/18 [History] Simvastatin [Zocor] 40 mg PO HS 02/27/18 [History] Buspirone HCl [Buspar] 30 mg PO BID 09/17/18 [History] Fluticasone Propionate Nasal [Flonase] 2 spr NS DAILY 09/17/18 [History] Fluticasone/Umeclidin/Vilanter [Trelegy Ellipta 100-62.5-25] 1 puff IH DAILY 09/17/18 [History] Losartan/Hydrochlorothiazide [Losartan-Hctz 100-25 mg Tab] 1 tab PO DAILY 09/17/18 [History] Rizatriptan Benzoate [Maxalt Clinical Trial Associate] 10 mg PO DAILY PRN 09/17/18 [History] Ropinirole HCl [Requip] 0.5 mg PO HS 09/17/18 [History] Sertraline [Zoloft] 100 mg PO DAILY 09/17/18 [History] Tramadol HCl [Ultram] 50 mg PO TID PRN 09/17/18 [History] Cholestyramine 4 gm PO QIDAC #120 powd.pack 09/21/18 [Rx] Pantoprazole Sodium [Protonix] 40 mg PO QAM #30 tablet. 09/21/18 [Rx] ALPRAZolam [Xanax 0.5 MG Tablet] 0.25 mg PO TID PRN 01/01/19 [History] Clopidogrel Bisulfate [Plavix] 75 mg PO DAILY 01/01/19 [History] Dicyclomine Hcl [Bentyl] 20 mg PO QID 01/01/19 [History] Potassium Chloride [K-Tab ER] 10 meq PO DAILY 01/01/19 [History] hydrOXYzine HCl [Hydroxyzine HCl] 25 mg PO TID 01/01/19 [History] Amoxicillin/Clavulanate [Augmentin] 875 mg PO BIDWM #14 tablet 01/04/19 [Rx] Mag Hydrox/Al Hydrox/Simeth [Maalox] 15 ml PO Q6HR PRN #20 udc 01/04/19 [Rx] Allergies/Adverse Reactions: Allergy/AdvReac Type Severity Reaction Status Date / Time cefdinir Allergy Diarrhea Verified 01/01/19 15:59 cefuroxime [From Ceftin] Allergy Diarrhea Verified 01/01/19 15:59 levofloxacin [From Levaquin] Allergy Hives Verified 01/01/19 15:59 codeine AdvReac Nausea Verified 01/01/19 15:59 latex AdvReac Hives Verified 01/01/19 15:59 Certification: Further, I certify that my clinical findings support that this patient is homebound (i.e. absences from home require considerable and taxing effort and are for medical reasons or [employer] services or infrequently or short duration when for other reasons) because: Homebound Reason: Patient requires assistance of a person or device to safely leave home Attestation: My signature below is to certify that this patient is under my care and that I, or nurse practitioner, or a physician's procurement assistant working with me, has a [id number] encounter with this patient.
[2019-01-04] MEDS: Mag Hydrox/Al Hydrox/Simeth 30 ML UDC PO PRN ×2 (16:22→23:11)
[2019-01-04] MEDS: rOPINIRole 0.25 MG TABLET PO SCH (22:14)
[2019-01-05] MEDS: Ipratropium/Albuterol Neb 3 ML IH SCH ×2 (04:25→09:47)
[2019-01-05] MEDS: traMADol 50 MG TABLET PO PRN (06:10)
[2019-01-05] MEDS: Cholestyramine 4 GM POWD.PACK PO SCH (06:11)
[2019-01-05] MEDS: ALPRAZolam 0.25 MG TABLET PO PRN (06:11)
[2019-01-05] MEDS: Mag Hydrox/Al Hydrox/Simeth 30 ML UDC PO PRN (06:11)
[2019-01-05 08:07] VITALS: BP 139/84
[2019-01-05] MEDS: BUSPIRONE HCL 10 MG TABLET PO SCH (08:09)
[2019-01-05] MEDS: Losartan/HCTZ 50-12.5 TABLET PO SCH (08:10)
[2019-01-05] MEDS: Cholecalciferol (D-3) 1,000 UNIT TABLET PO SCH (08:10)
[2019-01-05] MEDS: Cyanocobalamin (B-12) 1,000 MCG TABLET PO SCH (08:11)
[2019-01-05] MEDS: Gabapentin 400 MG CAPSULE PO SCH (08:11)
== END 2019-01-05 13:35 | disposition home health service (06) | DRG 194 ==
LOC: 3BNU 10:34 → EMEROOARM 10:34 → 3BNU 16:25
PROVIDERS: ADMIT Internal Medicine Nephrology; ATTEND Internal Medicine Nephrology